=== PATIENT | male | born 1955 | race American Indian/Alaskan Native ===

== ENCOUNTER 2020-11-14 16:25 | Emergency (ER) | payer SELFPAY ==
[2020-11-14 17:40] VITALS: BP 153/101
--- NOTE | 2020-11-14 18:29 | Emergency Department Report ---
[facility] Duration: 9 days Side: Bilateral Symptoms: Yes Eye Itching, Yes Eye Redness, Yes H/O Allergic Rhinitis, No Eye Pain, No Purulent Drainage, No Blurred Vision, No Trauma, No Fever, No Headache <THERESE BOSCH - Last Filed: 11/14/20 18:26> <CYRUS RODRIGUEZ III - Last Filed: 11/14/20 20:13> Chief Complaint: Eye Problems Stated Complaint: EYES WATERY Time Seen by Provider: 11/14/20 17:58 ED Review of Systems ROS: Stated complaint: EYES WATERY Other details as noted in HPI Comment: All other systems reviewed and negative <THERESE BOSCH - Last Filed: 11/14/20 18:26> ROS: Stated complaint: EYES WATERY Other details as noted in HPI <CYRUS RODRIGUEZ III - Last Filed: 11/14/20 20:13> ED Past Medical Hx - Past Medical History Previous Medical History?: No - Surgical History Additional Surgical History: appendis - Social History Smoking Status: Never Smoker <THERESE BOSCH - Last Filed: 11/14/20 18:26> <CYRUS RODRIGUEZ III - Last Filed: 11/14/20 20:13> - Medications Home Medications: Home Medications Medication Instructions Recorded Confirmed Last Taken Type Olopatadine HCl [Pataday 0.2%] 1 drop OU QDAY #1 drops 11/14/20 Unknown Rx Tobramycin [Tobrex] 1 drop OU Q4H #1 bottle 11/14/20 Unknown Rx [facility] Exam - Exam General: Vital signs noted. No distress. Alert and acting appropriately. Eye Exam: Both Injection, Neither Chemosis, Neither Abnormal Pupil, Neither EOMI, Neither Eye Foreign Body, Neither Lid Foreign Body, Neither Mucous Discharge (Mild discharge), Neither Purulent Discharge, Neither Fluorescein Upt vidal, Neither Fluorescein Uptake (slit lamp), Neither Cell/Flare (slit lamp), Neither Corneal Edema, Neither Photophobia HEENT: Yes Nasal Congestion, No Pharyngeal Erythema Remainder of HEENT: Normal Lungs: Yes Clear Lung Sounds, Yes Good Air Exchange, No Wheezes, No Stridor, No Cough, No Nasal Flaring, No Retractions, No Use of Accessory Muscles <THERESE BOSCH - Last Filed: 11/14/20 18:26> - Exam General: Vital signs noted. No distress. Alert and acting appropriately. <CYRUS RODRIGUEZ III - Last Filed: 11/14/20 20:13> ED Course Vital Signs 11/14/20 17:39 Temperature 98.0 F Pulse Rate 95 H Respiratory 20 Rate Blood Pressure 153/101 O2 Sat by Pulse 94 Oximetry <THERESE BOSCH - Last Filed: 11/14/20 18:26> Vital Signs 11/14/20 17:39 Temperature 98.0 F Pulse Rate 95 H Respiratory 20 Rate Blood Pressure 153/101 O2 Sat by Pulse 94 Oximetry - Reevaluation(s) Reevaluation #1: The PA has asked me to see the patient since the patient is asking for management of his psychiatric medications. I reviewed the findings and management of this patient in real-time and I have personally seen and examined this patient and participated in the decision making for this patient with the midlevel. Patient is a 65-year-old male who presents for red eyes. Patient clinical findings with conjunctivitis. Patient given prescription by the PA. I agree with the plan of care. Patient denies suicidal homicidal ideation. Patient denies fever or chills. Patient denies abdominal pain. Patient denies hallucinations. Patient only complaint is his right eye. Patient states that he would like some help with his mental health medications and have somebody adjust them. Patient states he has a psychiatrist at [facility]. I instructed the patient to follow-up with his psychiatrist so that the psychiatrist can properly manage his psychiatric medications. Patient agrees with plan of care. Patient denies recent travel. Patient denies recent international travel. Patient denies exposure to the novel coronavirus. Patient denies sick contacts. Patient denies fever and chills. Patient denies cough. Patient denies diarrhea. Patient denies coming in contact with anybody with symptoms of the novel coronavirus. I examined the patient. CV exam shows normal S1-S2 and no murmurs. Abdominal exam is negative. Patient's lung sounds are clear. Patient noted to have conjunctivitis on eye exam. Patient has a flat affect but denies suicidal and homicidal ideations. I discussed all clinical findings with patient. I discussed plan of care with patient. Patient agrees with plan of care. Patient is stable for discharge. Patient will be discharged home. Patient given discharge instructions. Patient voiced understanding of discharge instructions. 11/14/20 20:01 <CYRUS RODRIGUEZ III - Last Filed: 11/14/20 20:13> Critical care attestation.: If time is entered above; I have spent that time in minutes in the direct care of this critically ill patient, excluding procedure time. <THERESE BOSCH - Last Filed: 11/14/20 18:26> Critical care attestation.: If time is entered above; I have spent that time in minutes in the direct care of this critically ill patient, excluding procedure time. <CYRUS RODRIGUEZ III - Last Filed: 11/14/20 20:13> ED Disposition Is pt being admited?: No Does the pt Need Aspirin: No <THERESE BOSCH - Last Filed: 11/14/20 18:26> Is pt being admited?: No Does the pt Need Aspirin: No Time of Disposition: 20:13 <CYRUS RODRIGUEZ III - Last Filed: 11/14/20 20:13> Clinical Impression: Red eye Conjunctivitis Qualifiers: Conjunctivitis type: unspecified Laterality: bilateral Qualified Code(s): H10.9 - Unspecified conjunctivitis Disposition: DC- TO HOME OR SELFCARE Condition: Stable Instructions: Bacterial Conjunctivitis, Adult, [id number], Allergic Conjunctivitis, Adult, How to Use Eye Drops and Eye Ointments Prescriptions: Olopatadine HCl [Pataday 0.2%] 1 drop OU QDAY #1 drops Tobramycin [Tobrex] 1 drop OU Q4H #1 bottle
== END 2020-11-14 19:07 | disposition home or self-care (01) ==
LOC: ED 16:25
DX: H10.9 Unspecified conjunctivitis (principal); H57.89 Other specified disorders of eye and adnexa; Z88.0 Allergy status to penicillin; Z79.899 Other long term (current) drug therapy
CPT/HCPCS: 99281